=== PATIENT | male | born 1965 | race Caucasian/White ===

== ENCOUNTER 2021-02-06 05:44 | Outpatient (RCR) | payer BC ==
[2021-02-04 10:02] VITALS: BP 148/94
--- NOTE | 2021-02-04 11:06 | Diagnostic Imaging Report ---
INDICATION: Preop for left total knee replacement surgery. EXAMINATION: PA and lateral views of the chest. FINDINGS: The heart size and vascularity are normal. Lungs are clear. There is no effusion. There is no acute bony abnormality. IMPRESSION: No acute abnormality is seen. Dictated by: Dictated on workstation # [id number]
[2021-02-04 11:08] LABS: BASOPHILS # (AUTO) 0.1 10^3/uL (0.0-0.1); BASOPHILS % (AUTO) 1 % (0-10); EOSINOPHILS # (AUTO) 0.2 10^3/uL (0.0-0.3); EOSINOPHILS % (AUTO) 2 % (0-10); HEMATOCRIT 50 % (40-54); HEMOGLOBIN 16.5 g/dL (13.3-17.7); LYMPHOCYTES # (AUTO) 2.2 10^3/uL (1.0-4.0); LYMPHOCYTES % (AUTO) 31 % (12-44); MEAN CORPUSCULAR HEMOGLOBIN 29 pg (25-34); MEAN CORPUSCULAR HGB CONC 33 g/dL (32-36); MEAN CORPUSCULAR VOLUME 88 fL (80-99); MEAN PLATELET VOLUME 9.8 fL (9.0-12.2); MONOCYTES # (AUTO) 0.6 10^3/uL (0.0-1.0); MONOCYTES % (AUTO) 9 % (0-12); NEUTROPHILS # (AUTO) 3.9 10^3/uL (1.8-7.8); NEUTROPHILS % (AUTO) 56 % (42-75); PLATELET COUNT 207 10^3/uL (130-400)
[2021-02-04 11:27] LABS: BILIRUBIN,URINE NEGATIVE (NEGATIVE); CLARITY,URINE CLEAR; COLOR,URINE YELLOW; GLUCOSE, URINE (UA) NEGATIVE (NEGATIVE); KETONES,URINE NEGATIVE (NEGATIVE); LEUKOCYTE ESTERASE ,URINE NEGATIVE (NEGATIVE); NITRITE,URINE NEGATIVE (NEGATIVE); PH,URINE 5.5 (5-9); PROTEIN,URINE NEGATIVE (NEGATIVE)
[2021-02-04 11:28] LABS: ERYTHROCYTE SEDIMENTATION RATE 5 MM/HR (0-30)
[2021-02-04 11:30] LABS: PROTHROMBIN TIME PATIENT 13.1 SEC (12.2-14.7)
[2021-02-04 11:36] LABS: ALANINE AMINOTRANSFERASE 67 U/L (0-55); ALBUMIN 4.1 GM/DL (3.2-4.5); ALKALINE PHOSPHATASE 53 U/L (40-136); BILIRUBIN,TOTAL 0.6 MG/DL (0.1-1.0); BUN/CREATININE RATIO 15; CALCIUM 9.4 MG/DL (8.5-10.1); CARBON DIOXIDE 23 MMOL/L (21-32); CHLORIDE 106 MMOL/L (98-107); CREATININE SERUM 0.97 MG/DL (0.60-1.30); GFR ESTIMATED > 60; GLUCOSE 161 MG/DL (70-105); POTASSIUM 4.2 MMOL/L (3.6-5.0); SODIUM 140 MMOL/L (135-145); TOTAL PROTEIN 7.1 GM/DL (6.4-8.2)
[2021-02-04 11:37] LABS: BACTERIA,URINE NEGATIVE /HPF; SQUAMOUS EPITHELIAL CELL,UR RARE /HPF
[~2021-02-06] VITALS: Ht 190.5 cm; Wt 144.3 kg
[~2021-02-06 05:44] MED LIST: CETI-458 PO; LISI10TA25 PO; OMEP20TA7 PO
== END 2021-02-06 13:40 | disposition home or self-care (01) ==
LOC: PREOP 05:44
PROVIDERS: ATTEND Orthopaedic Surgery
DX: Z01.812 Encounter for preprocedural laboratory examination (principal); Z01.810 Encounter for preprocedural cardiovascular examination; M17.12 Unilateral primary osteoarthritis, left knee; Z96.652 Presence of left artificial knee joint
CPT/HCPCS: 36415; 71046; 80053; 81000; 85025; 85610; 85652; 86850; 86900; 86901; 87081; 87635; 93005

== ENCOUNTER 2021-02-11 05:58 | Inpatient (IN) | payer BC ==
--- NOTE | 2021-02-05 06:44 | HISTORY AND PHYSICAL ---
DATE OF SERVICE: ADMISSION HISTORY AND PHYSICAL DATE OF ADMISSION: 02/11/2021 This will be for inpatient surgery on 02/11/2021 for left total knee arthroplasty. The patient will require regular inpatient admission due to comorbidities, need for pain management and need for physical therapy. HISTORY OF PRESENT ILLNESS: The patient is a 56-year-old gentleman with progressively worsening left knee pain. He has undergone treatment with injections as well as arthroscopies without relief. He reports progressive loss of function in his knee. He is rather large weight barnes and the patient was counseled as a greater risk of complications due to his size. He reports he is having difficulties with activities of daily living because of this and because of this, he elected to proceed with surgical intervention. REVIEW OF SYSTEMS: No chest pain, no shortness of breath, no dysuria. PAST MEDICAL HISTORY: Left rotator cuff tear. PAST SURGICAL HISTORY: Bilateral knee arthroscopy, left shoulder arthroscopy. FAMILY HISTORY: Unknown. PRIMARY CARE PROVIDER: None. MEDICATIONS: No known medications. ALLERGIES: No known drug allergies. SOCIAL HISTORY: The patient drinks alcohol occasionally. He denies tobacco use. RADIOGRAPHS: Reveal complete loss of medial patellofemoral joint space without acute changes. PHYSICAL EXAMINATION: GENERAL: The patient is well-developed, well-nourished, in no acute distress. HEENT: Normocephalic, atraumatic. Pupils are equal, round and reactive to light. Oropharynx is clear. NECK: Supple, no lymphadenopathy. LUNGS: Clear to auscultation bilaterally. HEART: Regular rate and rhythm. ABDOMEN: Soft, nontender, nondistended. EXTREMITIES: The left knee demonstrates varus alignment. He ambulates with an antalgic gait. Range of motion is 0/3/95. There is no varus valgus laxity. Negative anterior and posterior drawer. It is tender along his medial femoral condyle and has pain medially with Katie's. IMPRESSION: Severe left knee osteoarthritis, unresponsive to conservative measures. PLAN: Left total knee arthroplasty. The risks, benefits, options, ramifications and recovery were discussed at length with the patient. He understands and wishes to proceed. Job ID: [id number] DocumentID: [id number] Dictated Date: 01/28/2021 10:11:38 Butadiene Converter Helper Date: 01/28/2021 10:38:50 Dictated By: LEAH WILLIAM MD
[2021-02-11] VITALS (9 sets, daily range): BP systolic 112–169; BP diastolic 79–96
[~2021-02-11] VITALS: Ht 190 cm; Wt 144.3 kg
[2021-02-11] MEDS ORDERED: CEFUROXIME INJECTION 1,500 MG in WATER (STERILE) FOR INJECTION 15 ML IV ONE (06:15)
[2021-02-11] MEDS: LACTATED RINGERS 1,000 ML IV PRN ×2 (06:40→08:01)
[2021-02-11] MEDS ORDERED: ROPIVACAINE 5MG/ML 30ML VIAL ONE (06:42)
[2021-02-11] MEDS ORDERED: MIDAZOLAM 2 MG/2 ML (VERSED) VIAL ONE ×2 (06:42→06:48)
[2021-02-11] MEDS ORDERED: LIDOCAINE PF 2% 5 ML (XYLOCAINE) VIAL ONE ×2 (06:47→07:10)
[2021-02-11] MEDS ORDERED: proPOfol 200 MG/20 ML (DIPRIVAN) VIAL IV ONE (06:47)
[2021-02-11] MEDS ORDERED: ONDANSETRON 4 MG/2 ML (SDV) Z0FRAN ONE (06:47)
[2021-02-11] MEDS ORDERED: SEVOFLURANE (ULTANE) 15 ML INHAL SOLN ONE ×3 (06:47→08:41)
[2021-02-11] MEDS ORDERED: fentaNYL INJ 100 MCG/2 ML AMP ONE ×2 (06:48→07:53)
[2021-02-11] MEDS ORDERED: ROCURONIUM 10 MG/ML 5 ML SYRINGE IV ONE (07:10)
[2021-02-11] MEDS ORDERED: diphenhydrAMINE 50 MG/ML INJ (BENADRYL) IVP PRN (07:15)
[2021-02-11] MEDS ORDERED: ACETAMINOPHEN 325 MG TABLET PO PRN (07:15)
[2021-02-11] MEDS ORDERED: ONDANSETRON 4 MG/2 ML (SDV) Z0FRAN IVP PRN ×2 (07:15→09:30)
[2021-02-11] MEDS ORDERED: morphine PCA 100 MG/100 ML BAG IV PRN (07:15)
[2021-02-11] MEDS ORDERED: TRANEXAMIC ACID 100 MG/ML 10 ML INJECTION ONE (07:25)
--- NOTE | 2021-02-11 07:27 | Progress Note-Pre Operative ---
Pre-Operative Progress Note H&P Reviewed The H&P was reviewed, patient examined and no changes noted. Date Seen by Provider: Feb 11, 2021 Time Seen by Provider: 07:15 Date H&P Reviewed: Feb 11, 2021 Time H&P Reviewed: 07:11 Pre-Operative Diagnosis: left knee primary osteoarthritis LEAH WILLIAM MD Feb 11, 2021 07:27
--- NOTE | 2021-02-11 07:28 | Progress Note-Post Operative ---
Post-Operative Progess Note Surgeon (s)/Marionette Performer (s) Surgeon LEAH WILLIAM MD Marionette Performer: Prem Lorenz Pre-Operative Diagnosis left knee primary osteoarthritis Post-Operative Diagnosis left knee primary osteoarthritis Procedure & Operative Findings Date of Procedure 02/11/21 Procedure Performed/Findings left total knee arthroplasty Anesthesia Type GETA Estimated Blood Loss Estimated blood loss (mL): minimal Specimens/Packing Specimens Removed none Packing: none LEAH WILLIAM MD Feb 11, 2021 07:28
--- NOTE | 2021-02-11 07:30 | D/C HH Face to Face Order ---
D/C Face to Face Orders Reconcile Patient Problems Problems Reviewed?: Yes Instructions for Patient Via [employer], Patient Instructions/FollowUp: three weeks Physician to follow Patient: three weeks Discharge Diet for Home: Regular Diet Patient Data-Allergies,Ht & Wt Patient Allergies: Coded Allergies: No Known Drug Allergies (Unverified , 02/11/21) Home Health Need/Face to Face Date of Face to Face: Feb 11, 2021 Clinical Findings: Muscle weakness, Pain with ambulation, Unsteady gait I have seen Pt [id number]: Yes Discharged To: Home Diagnosis/Conditions: left total knee arthroplasty Patient is Homebound due to: Sonali fall risk due to instabilty, Muscle weak ness, Pain w/ambulation Homebound Status Due to the above stated illness, injury or surgical procedure (medical condition or diagnosis) and associated clinical findings, the patient is homebound because of his/her inability to leave home except with aid of a supportive device and/or person AND leaving the home requires a considerable and taxing effort or is medically contraindicated. Pt req the following assistanc: [facility] Health Nursing Orders Home Health Services Order: Physical Therapy-Evaluate & Treat DC left knee lexy and apply steri strips 02/25/21 Home Health Infusion Therapy Line Start Date: Feb 11, 2021 Therapy Orders Therapy Orders: Physical Therapy, PT to assess for OT Therapy Specific Orders: Eval assistive deivces, Teach enviro modifications/safety, Gait training, Increase strength/endurance, Provider maintenance therapy, Restore ROM Certify Stmt I certify that this patient is under my care and that I, a nurse practitioner or a physician; a hr administrative assistant working with me, had a face to face encounter that - meets the physician face to face encounter requirements with this patient as dated. LAEH WILLIAM MD Feb 11, 2021 07:30
[2021-02-11] MEDS ORDERED: SUCCINYLCHOLINE INJ 100 MG/5 ML SYR/VIAL ONE (07:37)
[2021-02-11] MEDS ORDERED: INTRA-ARTICULAR IU ONE ×5 (07:45)
[2021-02-11] MEDS ORDERED: ESMOLOL 100 MG/10 ML (BREVIBLOC) VIAL ONE (07:59)
[2021-02-11] MEDS ORDERED: HYDROmorphone 2 MG/ML VIAL (DILAUDID) ONE (08:22)
[2021-02-11] MEDS ORDERED: NEOSTIGMINE 3 MG/3 ML VIAL ONE (08:23)
[2021-02-11] MEDS ORDERED: GLYCOPYRROLATE 0.2 MG/ML (ROBINUL) 2 ML VIAL ONE (08:23)
[2021-02-11] MEDS ORDERED: KETOROLAC 30 MG/ML VIAL ONE (08:45)
[2021-02-11] MEDS ORDERED: HYDROmorphone 2 MG/ML VIAL (DILAUDID) IV ONE (09:30)
--- NOTE | 2021-02-11 09:37 | Diagnostic Imaging Report ---
INDICATION: Left knee arthroplasty. COMPARISON: None. FINDINGS: Two views of the left knee demonstrate a well seated arthroplasty without evidence of fracture. Midline skin clips are present. There is no unexpected post operative foreign body. IMPRESSION: Well-seated left knee arthroplasty. Dictated by: Dictated on workstation # [id number]
[2021-02-11] MEDS ORDERED: morphine PCA 100 MG/100 ML BAG IV ONE (10:38)
[2021-02-11] MEDS ORDERED: NS IV 1000 ML 1,000 ML ONE (10:38)
[2021-02-11] MEDS ORDERED: KETOROLAC 30 MG/ML VIAL IVP ONE (10:45)
--- NOTE | 2021-02-11 11:06 | Progress Note ---
Standard Progress Note Progress Notes/Assess & Plan Date Seen by a Provider: Feb 11, 2021 Time Seen by a Provider: 09:15 Progress/Assessment & Plan post op check no complaints radiographs--hw well positioned without fracture LLE--2 plus DP pulse with brisk cap refill. sensation intact to light touch throughout. Intact DF and PF of toes and ankle s/p LTKA mobilize as able LEAH WILLIAM MD Feb 11, 2021 11:06
[2021-02-11] MEDS: NS IV 1000 ML 1,000 ML IV SCH ×3 (11:17→23:34)
--- NOTE | 2021-02-11 11:34 | OPERATIVE REPORT ---
DATE OF SERVICE: 02/11/2021 PREOPERATIVE DIAGNOSIS: Left knee primary osteoarthritis. POSTOPERATIVE DIAGNOSIS: Left knee primary osteoarthritis. PROCEDURE: Left total knee arthroplasty. SURGEON: Josse William MD [employer] PRINCIPAL: Prem Lorenz, who assisted throughout the procedure and closed the incision. ANESTHESIA: General endotracheal by Karan Barrera CRNA. TOURNIQUET TIME: Approximately 65 minutes at 300 mmHg. ESTIMATED BLOOD LOSS: Minimal. DRAINS: None. COMPLICATIONS: None. POSTOPERATIVE PLAN: Routine protocol. The patient was transferred to the recovery room awake and stable condition. MATERIALS: Microport cemented size 7 femur, cemented size 7 tibia with 10 mm insert and cemented size 35 patellar button. The patient was transferred to the recovery room awake and in stable condition. STATEMENT OF MEDICAL NECESSITY: The patient is a 56-year-old gentleman with longstanding progressive left knee pain. Radiographs revealed severe medial and patellofemoral arthrosis. He had tried rest, activity modifications, and anti-inflammatories without relief. Due to functional impairment and failure to improve with conservative measures, the patient elected to proceed with surgical intervention. DESCRIPTION OF PROCEDURE: After risks and benefits of procedure were discussed and questions were answered, an informed consent was signed and placed on chart, the operative site was confirmed in the preoperative holding area initialed by the surgeon. The patient was then transferred to the operating room and after adequate levels of general endotracheal anesthetic were obtained, a timeout was called, confirming the operative site. The left lower extremity was prepped and draped in the usual sterile fashion with the leg elevated and the knee flexed, the tourniquet was inflated to 300 mmHg. Standard anterior approach was utilized. Hemostasis was obtained with cautery. Medial parapatellar arthrotomy was performed leaving 1 cm cuff on the patella for later reattachment. A portion of the fat pad was resected. The ACL was resected. Subperiosteal release was carefully performed on the proximal medial tibia being careful to stay on the bony surface. Intramedullary guide was passed into the femur. The distal cutting block was placed and distal cut was made. The femur was sized to a size 7. The 7 cutting block was placed parallel to the epicondylar axis and cuts were made from posterior to anterior. Subperiosteal release was then carefully performed on posterior distal femur, being careful to stay on the bony surface. Intramedullary guide was then passed into the tibia. The cutting block was placed. Drop alexandro transected the intermalleolar axis. The 7 baseplate was placed. After the cut was made, this fit well. This was then prepared with a drill and keel punch after ensuring that the drop alexandro transected the intermalleolar axis. The femoral trial was placed and trochlear cut was made. A 10 mm insert was placed. The patella was prepared by resecting 10 mm off the undersurface. The peg guide was placed and peg holes were drilled at 35 trial was placed. The knee was taken through range of motion. Full extension was easily obtained under 20 degrees of flexion with gravity was easily obtained. The patella tracked well. There was no anterior/posterior or medial/lateral laxity in flexion or extension. The trials were removed. The bone ends were irrigated with pulse lavage. The periarticular block was placed in the posterior capsule, medial and lateral retinaculum extensor mechanism, subcutaneous tissues. The bony ends were then irrigated and dried and the tibial baseplate was cemented into position. Excessive cement was removed. Superior surface was irrigated and dried and the polyethylene insert was placed. Distal femur was irrigated and dried and the femoral prosthesis was cemented into position. Excessive cement was removed. The knee was brought out into full extension until the cement had cured. The undersurface of patella was irrigated and dried. The patellar button was cemented into position. Once the cement had cured, the knee was taken through range of motion. Full extension was easily obtained, 120 degrees of flexion with gravity was easily obtained. The patella tracked well. There was no anterior/posterior or medial/lateral laxity in flexion or extension. The joint was further irrigated with pulse lavage. Arthrotomy was closed with #2 Vicryl in mlxnog-ru-mlszm interrupted fashion. Knee was flexed. Patella tracked well with no undue tension at the repair site. The subcutaneous tissues were irrigated using a total of 6 liters throughout the procedure. A 0 Vicryl was used for deep subcutaneous tissue, 2-0 Vicryl for the superficial subcutaneous tissue, lexy used on the skin. A soft dressing was applied and the patient was transferred to the recovery room awake and in stable condition. The tourniquet was deflated after applying the dressing. Job ID: [id number] DocumentID: [id number] Dictated Date: 02/11/2021 09:12:02 Pigeon Fancier Date: 02/11/2021 11:33:09 Dictated By: JOSSE WILLIAM MD
[2021-02-11] MEDS: SENNA W/DOCUSATE (SENOKOT S) TABLET PO SCH ×2 (12:13→21:12)
[2021-02-11] MEDS ORDERED: OXYC1TAB11 PO (12:33)
--- NOTE | 2021-02-11 14:24 | Physical Therapy Evaluation ---
PT Evaluation-General Medical Diagnosis Admission Date Feb 11, 2021 at 05:58 Medical Diagnosis: left TKA Onset Date: Feb 11, 2021 Therapy Diagnosis Therapy Diagnosis: impaired mobility, strength, endurance, ROM Weight Bear Status Left Lower Extremity: Left Weight Bearing/Tolerated Referral Physician: Kelechi Reason for Referral: Evaluation/Treatment Medical History Additional Medical History PAST MEDICAL HISTORY: Left rotator cuff tear. PAST SURGICAL HISTORY: Bilateral knee arthroscopy, left shoulder arthroscopy. Social History Home: Single Level Current Living Status: Spouse Entry Into Home: Stairs Without Railing PT Steps Into Home: 3 Prior Prior Level of Function SCALE: Activities may be completed with or without assistive devices. 3-Faganiqhex-jfqkdbl completes the activity by him/herself with no assistance from a helper. 5-Set-up or Clean-up Assistance-helper sets up or cleans up; patient completes activity. [place] assists only prior to or following the activity. 4-Supervision or Touching Assistance-helper provides verbal cues and/or touching/steadying and/or contact guard assistance as patient completes activity. Assistance may be provided throughout the activity or intermittently. 3-Partial/Moderate Assistance-helper does LESS THAN HALF the effort. [place] lifts, holds or supports trunk or limbs, but provides less than half the effort. 2-Substantial/Maximal Assistance-helper does MORE THAN HALF the effort. [place] lifts or holds trunk or limbs and provides more than half the effort. 0-Paeretzpl-okluxd does ALL the effort. Patient does none of the effort to complete the activity. Or, the assistance of 2 or more helpers is required for the patient to complete the activity. If activity was not attempted, code reason: 7-Patient Refused. 9-Not Applicable-not attempted and the patient did not perform the activity before the current illness, exacerbation or injury. 10-Not Attempted due to Environmental Limitations-(lack of equipment, weather restraints, etc.). 88-Not Attempted due to Medical Conditions or Safety Concerns. Bed Mobility: 6 Transfers (B,C,W/C): 6 Gait: 6 Stairs: 6 Indoor Mobility (Ambulation): Independent Stairs: Independent PT Evaluation-Current Subjective Patient in bed pre tx, agrees to PT, has no complaints of pain, still has numbness and cannot dorisflex foot yet. Pt/Family Goals to be independent at home Objective Patient Orientation: Person, Place, Situation Attachments: SCD's, Polar Pack, IV ROM/Strength ROM Lower Extremities left knee flexion 75 degrees, extension +7 degrees Sensory Hearing: Functional Sensation Right Lower Extremit: Intact Sensation Left Lower Extremity: Impaired Transfers Roll Left to Right (QC): 6 Sit to Lying (QC): 6 Lying to Sitting/Side of Bed(Q: 6 Sit to Stand (QC): 4 Chair/Nfc-pa-Nxgob Xfer(QC): 4 Gait Does the Patient Walk?: Yes Mode of Locomotion: Walk Anticipated Mode of Locomotion: Walk Walk 10 feet (QC): 4 Distance: 30' Gait Assistive Device: FWW Comments/Gait Description Patient ambulated to the restroom and back, his knee was able to bear weight without buckling, he has foot drop at this time though. Patient was a little unsteady but did not have a LOB, good step through. Balance Sitting Static: Normal Sitting Dynamic: Normal Standing Static: Good Standing Dynamic: Good Treatment LLE TKA protocol x10 (AP, QS, HS, SAQ, SLR), CPM donned and set to 60/-2 degrees and fit to leg. Assessment/Needs Patient in bed post tx with nurse call, phone, tray, all needs met, CPM donned, SCD's on, polar care on. Patient has impaired mobility, strength, endurance, ROM. Patient still has some numbness and weakness in his left leg but that should wear off. Rehab Potential: Fair PT Fpc Goals Cloth Opener Hand Goals PT Fpc Goals Time Frame: Feb 18, 2021 Roll Left & Right (QC): 6 Sit to Lying (QC): 6 Lying-Sitting on Side/Bed(QC): 6 Sit to Stand (QC): 5 Chair/Lck-wp-Kehet Xfer(QC): 5 Walk 10 feet (QC): 5 Walk 50ft with 2 Turns (QC): 5 Walk 150 ft (QC): 5 1 Step (curb) (QC): 4 4 Steps (QC): 4 PT Plan Problem List Problem List: Activity Tolerance, Functional Strength, Safety, Balance, Gait, Transfer, Bed Mobility, ROM Treatment/Plan Treatment Plan: Continue Plan of Care Treatment Plan: Bed Mobility, Education, Functional Activity Rolly, Functional Strength, Gait, Safety, Therapeutic Exercise, Transfers Treatment Duration: Feb 18, 2021 Frequency: 11 times per week Estimated Hrs Per Day: .25 hour per day Patient and/or Family Agrees t: Yes Safety Risks/Education Patient Education: Gait Training, Transfer Techniques, Reviewed Use of Ice, Correct Positioning, Safety Issues Teaching Recipient: Patient Teaching Methods: Demonstration, Discussion Response to Teaching: Reinforcement Needed Discharge Recommendations Plan Patient will perform bed mobility and transfer training, balance and endurance training, functional strengthening, stair training, gait training, and education, to improve functional mobility and independence at home. Therapy Discharge Recommendati: Home & Family Time/GCodes Time In: 1313 Time Out: 1336 Total Billed Treatment Time: 23 Total Billed Treatment 1 visit EVL 10' FA 13' IVETTE CLEVELAND PT Feb 11, 2021 14:24
[2021-02-11] MEDS: CEFUROXIME INJECTION 750 MG in WATER (STERILE) FOR INJECTION 10 ML IV SCH ×2 (15:46→23:42)
--- NOTE | 2021-02-11 18:03 | Consultation ---
HPI History of Present Illness: This is Milton, a 56 yo M, who is here S/P L total knee replacement this AM. Milton is doing well, denies any pain currently. His and sister are currently with him. He has a c/o xerostomia, and has not had any water to drink today. Water is at his bedside and he was encouraged to drink more. Patient seen and examined with MS4, agree with above HPI. Asked to see patient for medical consult. Patient states that he takes medications for his blood pressure and take meds for GERD PRN. Denies any CAD, SC, COPD. Doing well after surgery. Source: patient, family, spouse Exam Limitations: no limitations Date seen by provider: Feb 11, 2021 Time Seen by Provider: 17:45 Attending Physician Josse Hoffmann MD [facility] Consult Date of Admission Feb 11, 2021 at 05:58 Home Medications Home Medications Reviewed patient Home Medication Reconciliation performed by pharmacy medication reconciliations small electric engine technician and/or nursing. Patients Allergies have been reviewed. 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[employer] ) Smoking Status: Never a Smoker Recent Hopitalizations: No Alcohol Use?: Yes Have you traveled recently?: No Past Medical History HTN GERD Hypertension Gerd Family Medical History Significant Family History: No Pertinent Family Hx Review of Systems ([facility]) Constitutional: no symptoms reported; No chills, No dizziness, No fever EENTM: no symptoms reported, other (Xerostomia ); No blurred vision, No mouth pain, No nose congestion, No nose pain Respiratory: no symptoms reported; No cough, No dyspnea on exertion, No short of breath Cardiovascular: no symptoms reported; No chest pain, No edema, No palpitations Gastrointestinal: no symptoms reported; No abdominal pain, No constipation, No diarrhea, No nausea, No vomiting Genitourinary: no symptoms reported; No dysuria, No frequency, No hematuria Musculoskeletal: No back pain; joint pain, joint swelling (Left Total Knee) Skin: no symptoms reported; No lesions, No rash Psychiatric/Neurological: No Symptoms Reported; Denies Anxiety, Denies Depressed Physical Exam-([facility]) Physical Exam Vital Signs VS - Last 72 Hours, by Label 02/11/21 02/11/21 02/11/21 02/11/21 07:01 07:10 09:10 09:10 Temp 35.9 36.2 Pulse 86 Resp 20 20 B/P (MAP) 149/96 (113) 112/94 (100) Pulse Ox 96 96 100 O2 Delivery Room Air Room Air OxyMask OxyMask O2 Flow Rate 8 8 02/11/21 02/11/21 02/11/21 02/11/21 09:20 09:25 09:30 09:40 Resp 20 14 14 B/P (MAP) 154/84 (107) 166/96 (119) 164/95 (118) Pulse Ox 100 100 99 O2 Delivery OxyMask OxyMask OxyMask OxyMask O2 Flow Rate 6 6 4 2 02/11/21 02/11/21 02/11/21 02/11/21 09:40 09:50 09:55 10:00 Temp 36.4 Resp 20 14 B/P (MAP) 169/81 (110) 155/85 (108) Pulse Ox 99 98 O2 Delivery OxyMask OxyMask Room Air Room Air O2 Flow Rate 2 2 02/11/21 02/11/21 02/11/21 02/11/21 10:00 11:19 12:29 15:04 Resp 16 O2 Delivery Room Air Room Air Room Air 02/11/21 02/11/21 16:00 19:40 Temp 36.4 36.5 Pulse 104 108 Resp 22 18 B/P (MAP) 138/79 (98) 149/84 (105) Pulse Ox 94 94 O2 Delivery Room Air Room Air Capillary Refill : Less Than 3 Seconds General Appearance: WD/WN, no apparent distress HEENT: PERRL/EOMI; No scleral icterus (R), No scleral icterus (L) Neck: non-tender, full range of motion, supple, normal inspection; No lymphadenopathy (R), No lymphadenopathy (L) Respiratory: chest non-tender, lungs clear, normal breath sounds, no respiratory distress, no accessory muscle use Cardiovascular: normal peripheral pulses, regular rate, rhythm, no edema, no murmur Peripheral Pulses: 2+ Dorsalis Pedis (R), 2+ Left Dors-Pedis (L), 2+ Radial Pulses (R), 2+ Radial Pulses (L) Gastrointestinal: normal bowel sounds, non tender, soft Back: no CVA tenderness, no vertebral tenderness Extremities: normal capillary refill, other (compression stocking on LE bilaterally) Neurologic/Psychiatric: associate loan officer II-XII nml as tested, alert, normal mood/affect, oriented x 3 Skin: normal color, warm/dry Lymphatic: no adenopathy Assessment/Plan Assessment/Plan Admission Dx S/P L total knee replacement (1) S/P total knee replacement Status: Acute Assessment & Plan: Continue orders placed by Dr. Hoffmann - Pain meds per Dr Hoffmann, orders placed Qualifiers: Qualified Codes: Z96.652 - Presence of left artificial knee joint (2) Hypertension Status: Chronic Assessment & Plan: Currently taking Lisinopril 10 mg daily - Will continue home meds (3) GERD (gastroesophageal reflux disease) Status: Chronic Assessment & Plan: Taking OTC Omeprazole 20 mg BID (4) DVT prophylaxis Status: Acute Assessment & Plan: Enoxaparin injections Supervisory-Addendum Brief Supervisory Addendum Verification and Attestation of Medical Student E/M Service A medical student performed and documented this service in my presence. I reviewed and verified all information documented by the medical student and made modifications to such information, when appropriate. I personally performed the physical exam and medical decision making. Wendy Witt, Feb 11, 2021,22:56 Dr Witt's plan in italics REBECA MCCANN MED STUDENT Feb 11, 2021 18:03 WENDY WITT MD Feb 11, 2021 22:56
[2021-02-12] VITALS: BP 130/82
[2021-02-12 03:54] VITALS: BP 137/80
[2021-02-12] MEDS: PANTOPRAZOLE 20 MG TABLET (PROTONIX) PO SCH ×2 (05:33→16:18)
[2021-02-12] MEDS: MULTIVIT W/MINERALS TAB (THERAGRAN M) PO SCH (05:33)
--- NOTE | 2021-02-12 07:57 | Progress Note ---
Standard Progress Note Progress Notes/Assess & Plan Date Seen by a Provider: Feb 12, 2021 Time Seen by a Provider: 07:56 Progress/Assessment & Plan post op check no complaints radiographs--hw well positioned without fracture LLE--2 plus DP pulse with brisk cap refill. sensation intact to light touch throughout. Intact DF and PF of toes and ankle s/p LTKA mobilize as able Final Diagnosis doing well paresthesias resolved Vital Signs Date Time Temp Pulse Resp B/P (MAP) Pulse Ox O2 Delivery O2 Flow Rate FiO2 02/12/21 03:54 36.3 101 18 137/80 (99) 93 Room Air 02/12/21 00:00 36.6 103 18 130/82 (98) 94 Room Air 02/11/21 21:00 94 Room Air 02/11/21 19:40 36.5 108 18 149/84 (105) 94 Room Air 02/11/21 16:00 36.4 104 22 138/79 (98) 94 Room Air 02/11/21 15:04 Room Air 02/11/21 12:29 Room Air 02/11/21 11:19 16 02/11/21 10:00 Room Air 02/11/21 10:00 36.4 14 155/85 (108) 98 Room Air 02/11/21 09:55 Room Air 02/11/21 09:50 20 169/81 (110) 99 OxyMask 2 02/11/21 09:40 OxyMask 2 02/11/21 09:40 14 164/95 (118) 99 OxyMask 2 02/11/21 09:30 14 166/96 (119) 100 OxyMask 4 02/11/21 09:25 OxyMask 6 02/11/21 09:20 20 154/84 (107) 100 OxyMask 6 02/11/21 09:10 OxyMask 8 02/11/21 09:10 36.2 20 112/94 (100) 100 OxyMask 8 I & O 02/12/21 07:00 Intake Total 2900 ml Output Total 575 ml Balance 2325 ml Laboratory Tests Test 02/12/21 06:43 Range/Units Hemoglobin 14.0 13.3-17.7 g/dL Hematocrit 43 40-54 % LLE dressing intact. Intact DF and PF of toes and ankle with intact sensation to light touch throughout no calf tenderness s/p LTKA doing well PT/OT LEAH WILLIAM MD Feb 12, 2021 07:57
[2021-02-12] MEDS ORDERED: OXYC1TAB87 PO (07:59)
[2021-02-12 08:00] VITALS: BP 133/88
[2021-02-12] MEDS: SENNA W/DOCUSATE (SENOKOT S) TABLET PO SCH ×2 (08:38→21:24)
[2021-02-12] MEDS: ENOXAPARIN 30 MG/0.3 ML (LOVENOX) SYR SC SCH ×2 (08:38→21:25)
[2021-02-12] MEDS: lisINopril 10 MG (PRINIVIL) TABLET PO SCH (08:38)
[2021-02-12] MEDS: ASPIRIN E.C. 81 MG (ECOTRIN) TAB PO SCH (08:38)
[2021-02-12] MEDS: oxyCODONE/APAP 5/325MG (PERCOCET 5) TABLET PO PRN ×4 (09:13→21:24)
--- NOTE | 2021-02-12 10:22 | Physical Therapy Daily Note ---
PT Daily Note-Current Subjective Patient agrees to PT. Pain Numeric Pain Scale: 5-Moderate Pain Location: Left Location Body Site: Knee Pain Description: Acute Comment: PLATE SENSITIZER and pain pill issued Mental Status Patient Orientation: Normal For Age Attachments: IV Transfers SCALE: Activities may be completed with or without assistive devices. 2-Uweygvrbgb-kmrrbuf completes the activity by him/herself with no assistance from a helper. 5-Set-up or Clean-up Assistance-helper sets up or cleans up; patient completes activity. [place] assists only prior to or following the activity. 4-Supervision or Touching Assistance-helper provides verbal cues and/or touching/steadying and/or contact guard assistance as patient completes activity. Assistance may be provided throughout the activity or intermittently. 3-Partial/Moderate Assistance-helper does LESS THAN HALF the effort. [place] lifts, holds or supports trunk or limbs, but provides less than half the effort. 2-Substantial/Maximal Assistance-helper does MORE THAN HALF the effort. [place] lifts or holds trunk or limbs and provides more than half the effort. 5-Mclbtfqcp-zmaaee does ALL the effort. Patient does none of the effort to complete the activity. Or, the assistance of 2 or more helpers is required for the patient to complete the activity. If activity was not attempted, code reason: 7-Patient Refused. 9-Not Applicable-not attempted and the patient did not perform the activity before the current illness, exacerbation or injury. 10-Not Attempted due to Environmental Limitations-(lack of equipment, weather restraints, etc.). 88-Not Attempted due to Medical Conditions or Safety Concerns. Sit to Lying (QC): 6 Sit to Stand (QC): 6 Chair/Yqe-io-Isivc Xfer(QC): 6 Weight Bearing Left Lower Extremity: Left Weight Bearing/Tolerated Gait Training Does the Patient Walk?: Yes Distance: 300' Walk 10 feet (QC): 5 Walk 50 ft with 2 Turns(QC): 5 Walk 150 ft (QC): 5 Gait Assistive Device: FWW steady, reciprocal pattern Exercises Supine Ex: Ankle pumps, Quad Set, Heel Slides, Straight leg raise Supine Reps: 15 Seated Therapy Exercises: Ankle pumps, Long arc quads Seated Reps: 15 Treatments CPM 0-70 degrees/polar pack in place Assessment Patient progressing with treatment plan. Plan dismissal tomorrow. PT Baseball Scout Goals Baseball Scout Goals PT Long-Term Goals Time Frame: Feb 18, 2021 Roll Left & Right (QC): 6 Sit to Lying (QC): 6 Lying-Sitting on Side/Bed(QC): 6 Sit to Stand (QC): 5 Chair/Tyb-of-Ajivy Xfer(QC): 5 Walk 10 feet (QC): 5 Walk 50ft with 2 Turns (QC): 5 Walk 150 ft (QC): 5 1 Step (curb) (QC): 4 4 Steps (QC): 4 PT Plan Treatment/Plan Treatment Plan: Continue Plan of Care Treatment Plan: Bed Mobility, Education, Functional Activity Rolly, Functional Strength, Gait, Safety, Therapeutic Exercise, Transfers Treatment Duration: Feb 18, 2021 Frequency: 11 times per week Estimated Hrs Per Day: .25 hour per day Patient and/or Family Agrees t: Yes Time/GCodes Time In: 852 Time Out: 915 Total Billed Treatment Time: 23 Total Billed Treatment 1 visit EX 10 min GT 13 min ERIC BERNAL PT Feb 12, 2021 10:22
--- NOTE | 2021-02-12 11:38 | Occupational Therapy Eval ---
OT Evaluation-General/PLF Medical Diagnosis Admission Date Feb 11, 2021 at 05:58 Medical Diagnosis: left TKA Onset Date: Feb 11, 2021 Therapy Diagnosis Therapy Diagnosis: Decreased ADL status Referral Physician: Kelechi Referral Reason: Activity Tolerance, Self Care, Evaluation/Treatment, Strengthening/ROM Medical History Additional Medical History RTC repair Current History L TKA 02/11 Reviewed History: Yes Social History Home: Single Level Current Living Status: Spouse Entry Into Home: Stairs Without Railing Steps Into Home: 3 ADL-Prior Level of Function SCALE: Activities may be completed with or without assistive devices. 7-Rlmagwvqfc-bgrsgap completes the activity by him/herself with no assistance from a helper. 5-Set-up or Clean-up Assistance-helper sets up or cleans up; patient completes activity. [place] assists only prior to or following the activity. 4-Supervision or Touching Assistance-helper provides verbal cues and/or touching/steadying and/or contact guard assistance as patient completes activ ity. Assistance may be provided throughout the activity or intermittently. 3-Partial/Moderate Assistance-helper does LESS THAN HALF the effort. [place] lifts, holds or supports trunk or limbs, but provides less than half the effort. 2-Substantial/Maximal Assistance-helper does MORE THAN HALF the effort. [place] lifts or holds trunk or limbs and provides more than half the effort. 9-Jcjhkmwmh-ejzdqh does ALL the effort. Patient does none of the effort to complete the activity. Or, the assistance of 2 or more helpers is required for the patient to complete the activity. If activity was not attempted, code reason: 7-Patient Refused. 9-Not Applicable-not attempted and the patient did not perform the activity before the current illness, exacerbation or injury. 10-Not Attempted due to Environmental Limitations-(lack of equipment, weather restraints, etc.). 88-Not Attempted due to Medical Conditions or Safety Concerns. ADL PLOF Comments IND within home/ at work, drives Self Care: Independent Functional Cognition: Independent DME/Equipment: Tub/Shower DME/Equipment Comments will need TTB and walker. Occupation: manager in training at [employer] [address] Self: Yes OT Current Status Subjective Pt in bed, polar pack and knee mobilizer present on L knee. Pt expresses min pain, agrees to tx. AxO. Mental Status/Objective Patient Orientation: Person, Place, Situation, Normal For Age Attachments: Polar Pack Current Glasses/Contacts: Yes Hearing Aids: No Dentures/Partials: No Upper Extremity ROM WFL BUE Upper Extremity Coordination WFL BUE Upper Extremity Sensation WFL BUE Upper Extremity Strength WFL BUE Edema: slight L knee ADL-Treatment Eating (QC): 6 Oral Hygiene (QC): 6 Toileting Hygiene (QC): 6 Other Treatments Pt introduced to OT role. Pt and OT discuss home environment- will need TTB upon d/c for tub/shower. No gbs, though will be able to manage. Pt expresses has been going to bathroom with use of walker, no issues. Pt expresses he has had so much pain in B knees that he has already adapted routine/ ADLs to fit pain. Pt expresses no need for AE training, as he will find a way to complete. present throughout the day and will not return to work until Mar 09. Pt to d/c OT services as none rendered at this time. D/c. Pt agrees. Education OT Patient Education: Correct positioning, Purpose of tx/functional activities, Safety issues, Transfer techniques, Use of adapted equipment Teaching Recipient: Patient Teaching Methods: Demonstration, Discussion Response to Teaching: Verbalize Understanding, Return Demonstration OT Senior Living Goals Senior Living Goals 1=Demonstrate adherence to instructed precautions during ADL tasks. 2=Patient will verbalize/demonstrate understanding of assistive devices/modifications for ADL. 3=Patient will improve strength/tolerance for activity to enable patient to perform ADL's. OT Education/Plan Problem List/Assessment Assessment: Decreased Activ Tolerance Discharge Recommendations Plan/Recommendations: Discharge/Goals Met Therapy Discharge Recommendati: Home & Family, Post Acute PT Equpiment Recommendations-D/C: Extended Bath Bench Comment walker Treatment Plan/Plan of Care Treatment,Training & Education: Yes Patient would benefit from OT for education, treatment and training to promote independence in ADL's, mobility, safety and/or upper extremity function for ADL's. Plan of Care: OTHER (eval and dc) Treatment Duration: Feb 12, 2021 Frequency: 1 time per week (eval and d/c) Rehab Potential: Fair Time/GCodes Start Time: 11:02 Stop Time: 11:12 Total Time Billed (hr/min): 10 Billed Treatment Time 1, STEFANIAL (d/c) ALBER CHAN OTR Feb 12, 2021 11:37
[2021-02-12 12:00] VITALS: BP 149/92
[2021-02-12] MEDS: NS IV 1000 ML 1,000 ML IV SCH (12:02)
--- NOTE | 2021-02-12 13:59 | Physical Therapy Daily Note ---
PT Daily Note-Current Subjective Patient in bed and on CPM. Agrees to PT. Pain Numeric Pain Scale: 6 Location: Left Location Body Site: Knee Pain Description: Acute Mental Status Patient Orientation: Normal For Age Attachments: IV Transfers SCALE: Activities may be completed with or without assistive devices. 8-Kbeeuijajh-qngszfi completes the activity by him/herself with no assistance from a helper. 5-Set-up or Clean-up Assistance-helper sets up or cleans up; patient completes activity. [place] assists only prior to or following the activity. 4-Supervision or Touching Assistance-helper provides verbal cues and/or touching/steadying and/or contact guard assistance as patient completes activity. Assistance may be provided throughout the activity or intermittently. 3-Partial/Moderate Assistance-helper does LESS THAN HALF the effort. [place] lifts, holds or supports trunk or limbs, but provides less than half the effort. 2-Substantial/Maximal Assistance-helper does MORE THAN HALF the effort. [place] lifts or holds trunk or limbs and provides more than half the effort. 1-Whyhebomm-asynsm does ALL the effort. Patient does none of the effort to complete the activity. Or, the assistance of 2 or more helpers is required for the patient to complete the activity. If activity was not attempted, code reason: 7-Patient Refused. 9-Not Applicable-not attempted and the patient did not perform the activity before the current illness, exacerbation or injury. 10-Not Attempted due to Environmental Limitations-(lack of equipment, weather restraints, etc.). 88-Not Attempted due to Medical Conditions or Safety Concerns. Lying to Sitting/Side of Bed(Q: 6 Sit to Stand (QC): 6 Chair/Hjc-ic-Jiknr Xfer(QC): 6 Toilet Transfer (QC): 6 Weight Bearing Left Lower Extremity: Left Weight Bearing/Tolerated Gait Training Does the Patient Walk?: Yes Distance: 300' Walk 10 feet (QC): 6 Walk 50 ft with 2 Turns(QC): 6 Walk 150 ft (QC): 6 Gait Assistive Device: FWW functional gait sequence Exercises Supine Ex: Ankle pumps, Quad Set, Heel Slides, Straight leg raise Supine Reps: 15 Seated Therapy Exercises: Long arc quads Seated Reps: 15 Assessment Patient progressing per protocol. Plan dismissal in a.m. PT Shelter Goals Shelter Goals PT Shelter Goals Time Frame: Feb 18, 2021 Roll Left & Right (QC): 6 Sit to Lying (QC): 6 Lying-Sitting on Side/Bed(QC): 6 Sit to Stand (QC): 5 Chair/Nge-tl-Nunvi Xfer(QC): 5 Walk 10 feet (QC): 5 Walk 50ft with 2 Turns (QC): 5 Walk 150 ft (QC): 5 1 Step (curb) (QC): 4 4 Steps (QC): 4 PT Plan Treatment/Plan Treatment Plan: Continue Plan of Care Treatment Plan: Bed Mobility, Education, Functional Activity Rolly, Functional Strength, Gait, Safety, Therapeutic Exercise, Transfers Treatment Duration: Feb 18, 2021 Frequency: 11 times per week Estimated Hrs Per Day: .25 hour per day Patient and/or Family Agrees t: Yes Time/GCodes Time In: 1300 Time Out: 1326 Total Billed Treatment Time: 26 Total Billed Treatment 1 visit EX 15 min GT 11 min ERIC BERNAL PT Feb 12, 2021 13:59
[2021-02-12 16:00] VITALS: BP 165/98
--- NOTE | 2021-02-12 19:06 | DISCHARGE SUMMARY ---
DATE OF SERVICE: DIAGNOSIS: Left knee primary osteoarthritis. PROCEDURE: Left total knee arthroplasty. SUMMARY: The patient is a 56-year-old gentleman who underwent a left total knee arthroplasty on the day of admission. Postoperatively, he did well. At time of discharge, his wound was clean and dry and no calf tenderness. Negative Homans sign. He was tolerating hid diet well and tolerating pain with oral pain medication. CONDITION AT DISCHARGE: Good. DISCHARGE DIET: Regular. FOLLOWUP: Followup is in three weeks. ACTIVITIES: Weightbearing as tolerated with assistive devices as needed. DISCHARGE MEDICATIONS: Home medications plus Percocet as needed for pain and one aspirin per day for 30 days. Job ID: [id number] DocumentID: [id number] Dictated Date: 02/12/2021 18:44:12 Manager Contract Date: 02/12/2021 19:05:45 Dictated By: LEAH WILLIAM MD
[2021-02-12 19:31] VITALS: BP 164/87
[2021-02-13] MEDS: oxyCODONE/APAP 5/325MG (PERCOCET 5) TABLET PO PRN ×4 (00:01→08:17)
[2021-02-13 00:26] VITALS: BP 171/100
[2021-02-13 04:06] VITALS: BP 159/100
[2021-02-13 05:46] LABS: HEMOGLOBIN 13.3 g/dL (13.3-17.7)
[2021-02-13] MEDS: MULTIVIT W/MINERALS TAB (THERAGRAN M) PO SCH (06:01)
[2021-02-13] MEDS: PANTOPRAZOLE 20 MG TABLET (PROTONIX) PO SCH (06:01)
--- NOTE | 2021-02-13 06:49 | Anesthesia-General Post-Op ---
General Patient Condition Mental Status/LOC: Same as Preop Cardiovascular: Satisfactory Nausea/Vomiting: Absent Respiratory: Satisfactory Pain: Controlled Complications: Absent Post Op Complications Complications None Follow Up Care/Instructions Patient Instructions None needed. Anesthesia/Patient Condition Patient Condition Patient is doing well, no complaints, stable vital signs, no apparent adverse anesthesia problems. No complications reported per nursing. D/C home per [facility] Criteria: Yes BORIS CARRILLO CRNA Feb 13, 2021 06:49
[2021-02-13] MEDS ORDERED: morphine INJ 4 MG/ML 1 ML (VIAL/SYRINGE) IVP PRN (07:00)
--- NOTE | 2021-02-13 07:01 | Progress Note ---
Standard Progress Note Progress Notes/Assess & Plan Date Seen by a Provider: Feb 13, 2021 Time Seen by a Provider: 06:59 Progress/Assessment & Plan post op check no complaints radiographs--hw well positioned without fracture LLE--2 plus DP pulse with brisk cap refill. sensation intact to light touch throughout. Intact DF and PF of toes and ankle s/p LTKA mobilize as able Final Diagnosis no complaints other than moderate knee pain Vital Signs Date Time Temp Pulse Resp B/P (MAP) Pulse Ox O2 Delivery O2 Flow Rate FiO2 02/13/21 04:06 98 20 159/100 (119) 93 Room Air 02/13/21 00:26 36.5 102 22 171/100 (123) 94 Room Air 02/12/21 23:58 36.0 02/12/21 21:00 97 Room Air 02/12/21 19:31 36.0 102 20 164/87 (112) 97 Room Air 02/12/21 16:00 36.0 103 20 165/98 (120) 97 Room Air 02/12/21 12:00 37.0 94 18 149/92 (111) 95 Room Air 02/12/21 08:27 Room Air 02/12/21 08:00 35.9 102 20 133/88 (103) 94 Room Air I & O 02/13/21 06:59 Intake Total 2850 ml Output Total 1200 ml Balance 1650 ml Laboratory Tests Test 02/13/21 05:34 Range/Units Hemoglobin 13.3 13.3-17.7 g/dL Hematocrit 41 40-54 % LLE--incision clean and dry no calf tnderness. Neg Jose's s/p LTKA doing well DC after PT today LEAH WILLIAM MD Feb 13, 2021 07:01
[2021-02-13 08:15] VITALS: BP 157/95
[2021-02-13] MEDS: SENNA W/DOCUSATE (SENOKOT S) TABLET PO SCH (08:16)
[2021-02-13] MEDS: lisINopril 10 MG (PRINIVIL) TABLET PO SCH (08:17)
[2021-02-13] MEDS: ASPIRIN E.C. 81 MG (ECOTRIN) TAB PO SCH (08:17)
[2021-02-13] MEDS: ENOXAPARIN 30 MG/0.3 ML (LOVENOX) SYR SC SCH (08:17)
--- NOTE | 2021-02-13 09:59 | Physical Therapy Daily Note ---
PT Daily Note-Current Subjective Patient agrees to PT. Up independently in room. Pain Numeric Pain Scale: 5-Moderate Pain Location: Left Location Body Site: Knee Pain Description: Acute Mental Status Patient Orientation: Normal For Age Transfers SCALE: Activities may be completed with or without assistive devices. 9-Ilqjldjbsq-isnskof completes the activity by him/herself with no assistance from a helper. 5-Set-up or Clean-up Assistance-helper sets up or cleans up; patient completes activity. [place] assists only prior to or following the activity. 4-Supervision or Touching Assistance-helper provides verbal cues and/or touching/steadying and/or contact guard assistance as patient completes activity. Assistance may be provided throughout the activity or intermittently. 3-Partial/Moderate Assistance-helper does LESS THAN HALF the effort. [place] lifts, holds or supports trunk or limbs, but provides less than half the effort. 2-Substantial/Maximal Assistance-helper does MORE THAN HALF the effort. [place] lifts or holds trunk or limbs and provides more than half the effort. 4-Fmfwookix-umpvew does ALL the effort. Patient does none of the effort to complete the activity. Or, the assistance of 2 or more helpers is required for the patient to complete the activity. If activity was not attempted, code reason: 7-Patient Refused. 9-Not Applicable-not attempted and the patient did not perform the activity before the current illness, exacerbation or injury. 10-Not Attempted due to Environmental Limitations-(lack of equipment, weather restraints, etc.). 88-Not Attempted due to Medical Conditions or Safety Concerns. Sit to Stand (QC): 6 Weight Bearing Left Lower Extremity: Left Weight Bearing/Tolerated Gait Training Does the Patient Walk?: Yes Distance: 300' Walk 10 feet (QC): 6 Walk 50 ft with 2 Turns(QC): 6 Walk 150 ft (QC): 6 Walking 10ft/uneven surface-QC: 6 Gait Assistive Device: FWW reciprocal pattern/slightly antalgic Stair Training Stair Training: Handrails/: 2 handrails #of Steps: 4 1 Step (curb) (QC): 6 4 Steps (QC): 6 Stairs: Pattern: Step to Exercises Seated Therapy Exercises: Ankle pumps, Long arc quads Seated Reps: 15 Assessment Patient reports compliance with HEP issued by physician at preop. Patient improved on this date. PT Nurse Aide Goals Nurse Aide Goals PT Correction Goals Time Frame: Feb 18, 2021 Roll Left & Right (QC): 6 Sit to Lying (QC): 6 Lying-Sitting on Side/Bed(QC): 6 Sit to Stand (QC): 5 Chair/Eba-hd-Gnoue Xfer(QC): 5 Walk 10 feet (QC): 5 Walk 50ft with 2 Turns (QC): 5 Walk 150 ft (QC): 5 1 Step (curb) (QC): 4 4 Steps (QC): 4 PT Plan Treatment/Plan Treatment Plan: Discontinue PT, goals met Treatment Plan: Bed Mobility, Education, Functional Activity Rolly, Functional Strength, Gait, Safety, Therapeutic Exercise, Transfers Treatment Duration: Feb 18, 2021 Frequency: 11 times per week Estimated Hrs Per Day: .25 hour per day Patient and/or Family Agrees t: Yes Time/GCodes Time In: 831 Time Out: 842 Total Billed Treatment Time: 11 Total Billed Treatment 1 visit FA 11 min ERIC BERNAL PT Feb 13, 2021 09:59
== END 2021-02-13 09:33 | disposition home or self-care (01) | DRG 470 ==
LOC: 4TH 05:58 → SURG 06:00 → 4TH 10:31
PROVIDERS: ADMIT Orthopaedic Surgery; ATTEND Orthopaedic Surgery
PROC: 0SRD0J9 Replacement of Left Knee Joint with Synthetic Substitute, Cemented, Open Approach (ICD-10-PCS; principal; 2021-02-11 07:28)
DX: M17.12 Unilateral primary osteoarthritis, left knee (principal); I10 Essential (primary) hypertension; K21.9 Gastro-esophageal reflux disease without esophagitis
CPT/HCPCS: 36415; 73560; 85014; 85018; 86850; 86900; 86901; 94664